=== PATIENT | male | born 1995 | race Caucasian/White ===

== ENCOUNTER 2023-06-21 12:12 | Emergency (ER) | payer OTHER ==
[~2023-06-21] VITALS: Ht 185.4 cm; Wt 77.1 kg
[2023-06-21 12:22] VITALS: BP 135/95
[2023-06-21] MEDS ORDERED: Amoxicillin875 MG PO (14:55)
[2023-06-21] MEDS ORDERED: Floxin10 ML LEFTEAR (14:55)
== END 2023-06-21 14:57 | disposition home or self-care (01) ==
LOC: ER 12:12
DX: H61.22 Impacted cerumen, left ear (principal); H60.92 Unspecified otitis externa, left ear
CPT/HCPCS: 69209; 99282; A9270

== ENCOUNTER 2024-10-01 17:41 | Emergency (ER) | payer OTHER ==
[~2024-10-01] VITALS: Ht 182.9 cm; Wt 74.8 kg
[~2024-10-01 17:41] MED LIST: Amoxicillin875 MG PO; Floxin10 ML LEFTEAR
[2024-10-01 18:27] VITALS: BP 118/86
[2024-10-01 19:12] LABS: CORONAVIRUS COVID-19 AG Negative (NEGATIVE); INFLUENZA A AG Negative (NEGATIVE); INFLUENZA B AG Negative (NEGATIVE)
[2024-10-01] MEDS ORDERED: RX Prepack 2 Tabs Ondansetron ODT 4MG UD ONE (19:50)
== END 2024-10-01 19:51 | disposition home or self-care (01) ==
LOC: ER 17:41
PROVIDERS: Physician Assistant
DX: J06.9 Acute upper respiratory infection, unspecified (principal); J40 Bronchitis, not specified as acute or chronic
CPT/HCPCS: 71046; 87428-QW; 99283-25; A9270